=== PATIENT | female | born 1945 | race Caucasian/White ===

== ENCOUNTER 2024-03-24 10:49 | Emergency (ER) | payer OTHER, SELFPAY ==
[2024-03-24 10:54] VITALS: BP 193/94
--- NOTE | 2024-03-24 11:57 | ED.GENMED ---
History of Present Illness
General
Chief Complaint: Ear Problem
Source: patient
Exam Limitations: none
Time Seen by Provider: 03/24/24 11:35
History of Present Illness
History of Present Illness:
78-year-old female presents complaining of persistent left ear discomfort. She was seen by the family doctor earlier this week and placed on an antibiotic. Patient cannot think of the name of the antibiotic. She notes still some discomfort and
muffled hearing. She denies any ringing in the ears dizziness headache fever cough sore throat shortness of breath or chest pain. She denies a rash.
Past History
Past History
ED Past Medical History: Hypercholesterolemia and Psychiatric (anxiety/depression)
ED Past Surgical History: Cardiac
Patient has exhibited threatening behavior?: No
Social History
Tobacco: Non-smoker
Alcohol: None
Drug: None
Personal:
Living: with family
Phy Exam
Physical Exam
Physical Exam:
General: Well-appearing female no acute respiratory distress
HEENT normocephalic atraumatic oral mucosa moist neck is supple no adenopathy there is a serous effusion in the left inner ear. Right tympanic membrane within normal limits. The TM on the left is not erythematous or bulging no trismus or drooling
Heart: Regular rate and rhythm no murmurs
Lungs: Clear no wheeze
Course
Vital Signs
Initial and Last Documented VS:
Initial Vital Signs
Temp Pulse Resp BP Pulse Ox
97.9 F 90 16 193/94 98
03/24/24 10:54 03/24/24 10:54 03/24/24 10:54 03/24/24 10:54 03/24/24 10:54
Last Documented Vital Signs
Temp Pulse Resp BP Pulse Ox
97.9 F 90 16 193/94 98
03/24/24 10:54 03/24/24 10:54 03/24/24 10:54 03/24/24 10:54 03/24/24 10:54
MDM/Problems Addressed
Differential Diagnosis Includes:
Left ear discomfort. Consider otitis media versus effusion. There is no rash to suggest shingles. No adenopathy.
Patient on antibiotic for potential otitis media. Do not suspect acute infectious cause at this time. She can continue the antibiotic until complete. Will recommend a short course of steroid to help with the serous effusion. She has an appoint
with ENT in the next couple weeks.
*Critical Care Note
Total Time (30-74mins, 75-104mins- exclusive of procedures): Not Applicable
ED Attending Note
-
Portions of this chart may have been created with voice recognition software.� Occasional wrong word or��sound alike� substitutions may have occurred due to the inherent limitations of voice recognition software.
Discharge Plan
Departure
Patient Disposition: Home (Routine Discharge)
Date of Disposition: 03/24/24
Time of Disposition: 11:59
Patient with high blood pressure during this ER visit?: No
Discharge Problem:
Acute effusion of left ear
Instructions: Serous Otitis Media (DC)
Prescriptions:
New
prednisone 20 mg tablet
40 mg PO DAILY 5 Days Qty: 10 0RF
No Action
atorvastatin 40 MG tablet
40 mg PO QPM
clonazepam 0.25 MG tablet
0.25 mg PO DAILYPRN PRN (Reason: anxiety)
clonazepam 0.5 MG tablet
0.5 mg PO HS
hydroxyzine HCl 10 MG tablet
10 mg PO BIDPRN PRN (Reason: anxiety)
hydroxyzine HCl 10 MG tablet
10 mg PO HS
escitalopram oxalate 20 MG tablet
20 mg PO DAILY
acetaminophen 325 MG tablet
650 mg PO Q4HPRN PRN (Reason: mild pain) Qty: 1 0RF
ibuprofen 200 MG tablet
400 - 600 mg PO Q6HPRN PRN (Reason: moderate pain) Qty: 1 0RF
oxycodone 5 MG tablet
5 mg PO Q4HPRN PRN (Reason: breakthrough/severe pain) Qty: 15 0RF
amoxicillin-pot clavulanate 1 TABLET tablet
1 tab PO Q12 Qty: 14 0RF
Referrals:
Donnell oPrras MD [Family Provider] -
Activity Restrictions/Additional Instructions:
Finish your current antibiotic. Take prednisone as directed. Return if worse otherwise continue to follow-up with ENT
Interventions
Interventions:
*Risk Screen - Suicide Last Done: 03/24/24 10:56
*General Assessment Last Done: 03/24/24 10:56
*Neglect/Abuse Screening Last Done: 03/24/24 10:56
ED- Fall Risk Assessment Last Done: 03/24/24 11:00
Discharge Date and Time
Print Language: [place] CITIZ[place]
== END 2024-03-24 12:52 | disposition home or self-care (01) ==
LOC: EMR 10:49
PROVIDERS: EMERGENCY PHYSICIAN Student in an Organized Health Care Education/Training Program; FAMILY PHYSICIAN Family Medicine
DX: H65.92 Unspecified nonsuppurative otitis media, left ear (principal); F41.8 Other specified anxiety disorders; E78.00 Pure hypercholesterolemia, unspecified
CPT/HCPCS: 99282

== ENCOUNTER → 2024-03-28 13:54 | Outpatient (REF) | payer OTHER, SELFPAY | LOC: WDC 13:54 | PROVIDERS: ATTENDING PHYSICIAN Family Medicine | DX: Z12.31 Encounter for screening mammogram for malignant neoplasm of breast (principal) | CPT/HCPCS: 77063; 77067 ==

== ENCOUNTER 2024-04-23 16:21 | Emergency (ER) | payer OTHER, SELFPAY ==
[2024-04-23 16:43] VITALS: BP 155/78
--- NOTE | 2024-04-23 17:32 | ED.GENMED ---
History of Present Illness
General
Chief Complaint: Musculo-Skeletal Complaint
Source: patient
Exam Limitations: none
Time Seen by Provider: 04/23/24 17:28
History of Present Illness
History of Present Illness:
See MDM
Past History
Past History
ED Past Medical History: Hypercholesterolemia and Psychiatric (anxiety/depression)
ED Past Surgical History: Cardiac
Patient has exhibited threatening behavior?: No
Social History
Tobacco: Non-smoker
Alcohol: None
Drug: None
Personal:
Living: with family
Phy Exam
Physical Exam
Physical Exam:
See MDM
Course
Orders/Labs/Results
Orders:
Orders
04/23/24 16:45
Ankle, left 3 view CR [CR Ankle - Left Min 3 Views ] Urgent
Comment:
Reason For Exam: pain
CR Foot - Left Min 3 Views Urgent
Comment:
Reason For Exam: pain
04/23/24 17:32
Oxycodone [Roxicodone] 5 mg PO NOW STA
Vital Signs
Initial and Last Documented VS:
Initial Vital Signs
Temp Pulse Resp BP Pulse Ox
98.2 F 70 18 155/78 96
04/23/24 16:43 04/23/24 16:43 04/23/24 16:43 04/23/24 16:43 04/23/24 16:43
Last Documented Vital Signs
Temp Pulse Resp BP Pulse Ox
98.2 F 70 18 155/78 96
04/23/24 16:43 04/23/24 16:43 04/23/24 16:43 04/23/24 16:43 04/23/24 16:43
MDM/Problems Addressed
Differential Diagnosis Includes:
HPI and MDM Narrative:
79-year-old female presenting with left ankle pain. Patient was walking out of a restaurant and she twisted her ankle. She has been using crutches without difficulty. Patient was concerned it could be fractured.
On exam, there is evidence of left lateral ankle sprain. Extremity is neurovascularly intact. No bony tenderness. X-rays negative for fracture. Discussed RICE therapy
Physical exam
General: Well appearing and non-toxic
HEENT: protecting airway
Neck: appears supple
CV: No evidence of cyanosis
Resp: No accessory muscle use
Abd: Non-distended
Extremities: Left lateral malleolus edema. No bony tenderness. Distal extremity neurovascular intact. Ankle joint stable
Neuro: alert
Psych: Normal affect
Skin: Intact
Problems Addressed including Acute and Chronic Conditions affecting care:
1. Left ankle sprain
Acuity: acute
Prognosis: stable
Details: X-rays negative for fracture. Patient tolerating crutches. Will provide short course of pain medicine and discussed RICE therapy. Patient feels comfortable going home
Differential Diagnosis (but not limited to): Ankle sprain, ankle
Drug therapy (if applicable): OTC meds, please see d/c instruction regarding Rx drugs
Amount and/or Complexity of Data Reviewed
Clinical info obtained from: Patient
External data reviewed: N/A
Labs I independently reviewed (but not limited to): N/A
Radiology: X-ray independently reviewed: No fracture noted on left ankle x-ray
Pulse Ox: not hypoxic
EKG independently reviewed: N/A
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
Critical Care: N/A
Risk of Complication:
Social Determinants of health: Good social support
Discussed with other providers: N/A
Escalation of Care includes Admit/Obs: After being observed in the Emergency Department, pt stable for discharge.
Occasional wrong word or 'sound a like' substitutions may have occurred due to the inherent limitations of voice recognition software. Read the chart carefully and recognize, using context, where substitutions have occurred.
*Critical Care Note
Total Time (30-74mins, 75-104mins- exclusive of procedures): Not Applicable
ED Attending Note
-
Portions of this chart may have been created with voice recognition software.� Occasional wrong word or��sound alike� substitutions may have occurred due to the inherent limitations of voice recognition software.
Discharge Plan
Departure
Patient Disposition: Home (Routine Discharge)
Date of Disposition: 04/23/24
Time of Disposition: 17:34
Patient with high blood pressure during this ER visit?: Yes
Discharge Problem:
Left ankle sprain
Instructions: Ankle Sprain ED, BLOOD PRESSURE
Prescriptions:
New
oxycodone 5 mg tablet
5 mg PO Q8H PRN (Reason: Pain) Qty: 5 0RF
No Action
atorvastatin 40 MG tablet
40 mg PO QPM
clonazepam 0.25 MG tablet
0.25 mg PO DAILYPRN PRN (Reason: anxiety)
clonazepam 0.5 MG tablet
0.5 mg PO HS
hydroxyzine HCl 10 MG tablet
10 mg PO BIDPRN PRN (Reason: anxiety)
hydroxyzine HCl 10 MG tablet
10 mg PO HS
escitalopram oxalate 20 MG tablet
20 mg PO DAILY
acetaminophen 325 MG tablet
650 mg PO Q4HPRN PRN (Reason: mild pain) Qty: 1 0RF
ibuprofen 200 MG tablet
400 - 600 mg PO Q6HPRN PRN (Reason: moderate pain) Qty: 1 0RF
oxycodone 5 MG tablet
5 mg PO Q4HPRN PRN (Reason: breakthrough/severe pain) Qty: 15 0RF
amoxicillin-pot clavulanate 1 TABLET tablet
1 tab PO Q12 Qty: 14 0RF
prednisone 20 mg tablet
40 mg PO DAILY 5 Days Qty: 10 0RF
Referrals:
Donnell Porras MD [Family Provider] -
Activity Restrictions/Additional Instructions:
Please return for any worsening symptoms.
You may return at any time if you have further concerns.
Please follow up with your doctor at the first available appointment, preferably this week.
Thank you for choosing [facility].
Interventions
Interventions:
*Risk Screen - Suicide Last Done: 04/23/24 16:43
*General Assessment Last Done: 04/23/24 16:43
*Neglect/Abuse Screening Last Done: 04/23/24 16:43
*ED COVID-19 Vaccine History Last Done: 04/23/24 16:43
ED-Musculoskeletal Assessment Last Done: 04/23/24 17:10
Discharge Date and Time
Print Language: DANISH
[2024-04-23] MEDS: ROXICODONE 5 MG PO (17:39)
--- NOTE | 2024-04-23 18:11 | EDRN ---
17:40 Re-applied pt's LOLA prior to d/c; pt has own crutches.
== END 2024-04-23 18:12 | disposition home or self-care (01) ==
LOC: EMR 16:21
PROVIDERS: EMERGENCY PHYSICIAN Student in an Organized Health Care Education/Training Program; FAMILY PHYSICIAN Family Medicine
DX: S93.402A Sprain of unspecified ligament of left ankle, initial encounter (principal); X50.1XXA Overexertion from prolonged static or awkward postures, initial encounter; Y93.01 Activity, walking, marching and hiking; Y92.511 Restaurant or cafe as the place of occurrence of the external cause; R03.0 Elevated blood-pressure reading, without diagnosis of hypertension; E78.00 Pure hypercholesterolemia, unspecified; F32.A Depression, unspecified; F41.9 Anxiety disorder, unspecified
CPT/HCPCS: 99283; 73610; 73630

== ENCOUNTER → 2025-02-19 13:28 | Outpatient (REF) | payer OTHER, SELFPAY | LOC: RCS 13:28 | PROVIDERS: ATTENDING PHYSICIAN Internal Medicine Cardiovascular Disease; FAMILY PHYSICIAN Family Medicine | DX: I10 Essential (primary) hypertension (principal) | CPT/HCPCS: 93306 ==

== ENCOUNTER → 2025-03-29 12:59 | Outpatient (REF) | payer OTHER, SELFPAY | LOC: WDC 12:59 | PROVIDERS: ATTENDING PHYSICIAN Family Medicine | DX: Z12.31 Encounter for screening mammogram for malignant neoplasm of breast (principal) | CPT/HCPCS: 77063; 77067 ==

== ENCOUNTER 2025-04-23 13:57 | Emergency (ER) | payer OTHER, SELFPAY ==
[2025-04-23 14:05] VITALS: BP 187/80
[2025-04-23 14:19] LABS: Hematocrit 36.4 % (37.0-47.0); Hemoglobin 12.1 g/dL (12.0-16.0); Mean Corp Hgb Conc. 33.2 g/dL (33.0-37.0); Mean Corpuscular Volume 91.7 fL (81.0-99.0); Nucleated Red Blood Cells % 0 %; Platelet Count 279 10^3/uL (130-400); Red Cell Dist. Width 14.8 % (11.5-14.5)
[2025-04-23 14:29] LABS: INR 1.00; PT 13.5 Sec (11.4-14.6)
[2025-04-23 14:37] LABS: ALT (SGPT) 15 U/L (0-35); AST (SGOT) 26 U/L (14-36); Albumin 3.9 g/dl (3.5-5.0); Alkaline Phosphatase 98 U/L (38-126); Blood Urea Nitrogen 16 mg/dl (7-17); Calcium 8.7 mg/dl (8.4-10.2); Carbon Dioxide 28 mmol/L (22-30); Chloride 108 mmol/L (98-107); Glucose 94 mg/dl (70-99); Potassium 4.6 mmol/L (3.5-5.1); Sodium 141 mmol/L (135-145); Total Protein 7.0 g/dl (6.3-8.2); eGFR 56.25
[2025-04-23 15:59] VITALS: BMI 29.7
[2025-04-23 16:01] VITALS: BP 178/78
[2025-04-23 17:00] VITALS: BP 176/76
[2025-04-23 17:10] LABS: Troponin I 0.015 ng/ml
--- NOTE | 2025-04-23 18:37 | ED.GENMED ---
History of Present Illness
General
Chief Complaint: Breathing Problem
Time Seen by Provider: 04/23/25 15:32
History of Present Illness
History of Present Illness:
80-year-old female presents the emergency department for evaluation of shortness of breath and chest heaviness beginning today. She notes that 4 days ago she tripped and fell backward striking her back on the ground, denies head injury. [place] fine
after this fall but since that time has had increasing shortness of breath today. Denies any cough or fever. She also notes left leg swelling that improved after Chris wrap. She does note that she has been attempting to lose weight recently but in
the past 1 to 2 weeks has gained anywhere from 7 to 8 pounds unexpectedly
Past History
Past History
ED Past Medical History: Hypercholesterolemia and Psychiatric (anxiety/depression)
ED Past Surgical History: Cardiac
Patient has exhibited threatening behavior?: No
Social History
Tobacco: Non-smoker
Alcohol: None
Drug: None
Personal:
Living: with family
Review of Systems
Review of Systems
Allergies reviewed?: Yes
All Other Systems: ROS reviewed and negative except as documented in HPI and ROS
Phy Exam
Physical Exam
Physical Exam:
GEN: Well appearing, NAD, WDWN
HEENT: Oral mucosa moist, no scleral icterus
Cardiac: Regular rate and rhythm, no murmur
Lung: No respiratory distress, no tachypnea, lungs clear to auscultation however diminished at the bases
MSK: No gross deformity or injuries, 2+ pitting edema bilateral lower extremities
Skin: Good color, no pallor or jaundice, no rashes
Neuro: AO x3, moves all extremities freely
Psych: Calm, cooperative
Scores
Heart Failure Risk
Heart Failure Risk Score: Not Applicable
Course
Orders/Labs/Results
Orders:
Orders
04/23/25 13:58
Electrocardiogram (*1) Urgent
Reason for Study: Chest Pain
EKG- Treatment ONCE
04/23/25 14:07
Chest [CR Chest - 2 Views ] Urgent
Comment:
Reason For Exam: SOB
04/23/25 14:13
CBC/With Diff [Complete Blood Count/With Diff] Urgent
CMP [Comprehensive Metabolic Panel] Urgent
PT/INR [Prothrombin Time] Urgent
Pro-BNP [NT-proBNP] Urgent
Troponin I Urgent
Comment: ADD ON
04/23/25 16:02
Add On- LAB Urgent
Comments:: troponin
Tests Added?: troponin
04/23/25 16:37
CT Chest With Iv Contrast Urgent
Comment:
Reason For Exam: back injury, R pleural effusion
04/23/25 18:37
Furosemide [Lasix] 20 mg IV ONCE ONE
Abnormal Lab Results
04/23/25
14:13
RBC 3.97 L 10^6/uL
(4.20-5.40)
Hct 36.4 L %
(37.0-47.0)
RDW 14.8 H %
(11.5-14.5)
Lymphocytes % 19.3 L %
(20.5-51.1)
Chloride 108 H mmol/L
(98-107)
04/23/25 14:13
04/23/25 14:13
Vital Signs
Initial and Last Documented VS:
Initial Vital Signs
Temp Pulse Resp BP Pulse Ox
98.7 F 60 15 187/80 96
04/23/25 14:04/23/25 14:04/23/25 14:04/23/25 14:04/23/25 14:05
Last Documented Vital Signs
Temp Pulse Resp BP Pulse Ox
98.7 F 53 25 176/76 96
04/23/25 14:05 04/23/25 18:30 04/23/25 18:30 04/23/25 17:00 04/23/25 18:38
MDM/Problems Addressed
MDM/Problems Addressed:
Imaging reveals a pleural effusion thus the patient sent for follow-up CT with contrast to evaluate for traumatic cause of effusion, fortunately CT was negative for both rib fractures, pneumothorax, as well as central PE. Given her weight gain and
leg swelling I suspect this is hypervolemia potentially cardiogenic. Will trial her on a course of diuretics as she is stable and not hypoxic, recommend close outpatient cardiology follow-up
Comment
Comment:
EKG independently interpreted by me shows normal sinus rhythm at a rate of [address] flattening diffusely however improved compared to prior EKG
*Pulse Oximetry
SaO2: 96
Oxygen Mode of Delivery: Room air
Patient hypoxic: no
*Critical Care Note
Total Time (30-74mins, 75-104mins- exclusive of procedures): Not Applicable
ED Attending Note
-
Portions of this chart may have been created with voice recognition software.� Occasional wrong word or��sound alike� substitutions may have occurred due to the inherent limitations of voice recognition software.
Discharge Plan
Departure
Patient Disposition: Home (Routine Discharge)
Date of Disposition: 04/23/25
Time of Disposition: 18:37
Patient with high blood pressure during this ER visit?: No
Discharge Problem:
Bilateral pleural effusion, Exertional dyspnea
Instructions: *[facility] Heart Failure Instructions
Prescriptions:
New
furosemide [Lasix] 20 mg tablet
20 mg PO DAILY Qty: 10 0RF
No Action
atorvastatin 40 MG tablet
40 mg PO QPM
clonazepam 0.25 MG tablet
0.25 mg PO DAILYPRN PRN (Reason: anxiety)
clonazepam 0.5 MG tablet
0.5 mg PO HS
hydroxyzine HCl 10 MG tablet
10 mg PO BIDPRN PRN (Reason: anxiety)
hydroxyzine HCl 10 MG tablet
10 mg PO HS
escitalopram oxalate 20 MG tablet
20 mg PO DAILY
acetaminophen 325 MG tablet
650 mg PO Q4HPRN PRN (Reason: mild pain) Qty: 1 0RF
ibuprofen 200 MG tablet
400 - 600 mg PO Q6HPRN PRN (Reason: moderate pain) Qty: 1 0RF
oxycodone 5 MG tablet
5 mg PO Q4HPRN PRN (Reason: breakthrough/severe pain) Qty: 15 0RF
amoxicillin-pot clavulanate 1 TABLET tablet
1 tab PO Q12 Qty: 14 0RF
prednisone 20 mg tablet
40 mg PO DAILY 5 Days Qty: 10 0RF
oxycodone 5 mg tablet
5 mg PO Q8H PRN (Reason: Pain) Qty: 5 0RF
Referrals:
Yen Prescott PA [Family Provider, Family Practice]
Activity Restrictions/Additional Instructions:
Take the water pill once daily for the next 7 days
This will cause you to urinate frequently so please be aware of this and prepare for increased frequency of urination
If you become dizzy, weak, or lightheaded please stop the medication and follow-up with your primary doctor or come to the ER
Your primary doctor should send you for repeat chest x-ray in 2 weeks to reassess the fluid collection particularly in the right lung
Please follow-up with your general supervisor as soon as possible for reevaluation
If your symptoms worsen at any point return to the ER
Interventions
Interventions:
*Risk Screen - Suicide Last Done: 04/23/25 14:05
*General Assessment Last Done: 04/23/25 14:05
*Neglect/Abuse Screening Last Done: 04/23/25 14:05
*ED- Fall Risk Assessment Last Done: 04/23/25 16:00
*ED COVID-19 Vaccine History Last Done: 04/23/25 16:00
*Nursing Disposition Last Done: 04/23/25 19:01
ED- Cardiac Assessment Last Done: 04/23/25 18:00
ED- Pulmonary Assessment Last Done: 04/23/25 18:00
Discharge Date and Time
Discharge Date/Time: 04/23/25 19:02
Print Language: BELARUSIAN
== END 2025-04-23 19:02 | disposition home or self-care (01) ==
LOC: EMR 13:57
PROVIDERS: Emergency Medicine; EMERGENCY PHYSICIAN Emergency Medicine; FAMILY PHYSICIAN Family Medicine
DX: J90 Pleural effusion, not elsewhere classified (principal); R06.09 Other forms of dyspnea; E78.00 Pure hypercholesterolemia, unspecified; F41.8 Other specified anxiety disorders
CPT/HCPCS: 99284; 96374; 71046; 71260; 80053; 83880; 84484; 85025; 85610; 93005; Q9967

== ENCOUNTER → 2025-05-07 10:33 | Outpatient (REF) | payer OTHER, SELFPAY | LOC: RAD 10:33 | PROVIDERS: ATTENDING PHYSICIAN Family Medicine; FAMILY PHYSICIAN Family Medicine | DX: J90 Pleural effusion, not elsewhere classified (principal) | CPT/HCPCS: 71046 ==